=== PATIENT | female | born 1990 | race Hispanic/Latino ===

== ENCOUNTER 2017-01-01 18:01 | Emergency (ER) | payer OTHER ==
[~2017-01-01] VITALS: Ht 167.6 cm; Wt 63.6 kg
[2017-01-01 18:14] VITALS: BP 146/94; PULSE 89; RESP 16; O2SAT 98
[2017-01-01 18:55] LABS: BASOPHILS % (AUTO) 0.3 % (0-3); EOSINOPHILS % (AUTO) 0.3 % (0-5); MONOCYTES % (AUTO) 8.5 % (4-12); NEUTROPHILS % (AUTO) 73.4 % (40-74); Platelet Count 271 bil/L (150-400)
[2017-01-01 18:56] LABS: APPEARANCE,URINE CLOUDY (CLEAR,HAZY); COLOR,URINE DARK YELLOW (YELLOW); OCCULT BLOOD,URINE LARGE (NEGATIVE); UROBILINOGEN,URINE NORMAL (NORMAL)
[2017-01-01] MEDS ORDERED: 0.9% Sodium Chloride 1,000 ML IV ONE (19:05)
[2017-01-01] MEDS ORDERED: Promethazine Inj 25 MG in Dextrose 5%-Pha MIX 50 ML IV ONE (19:20)
[2017-01-01 19:25] LABS: Magnesium 1.8 mg/dL (1.6-2.6)
--- NOTE | 2017-01-01 19:34 | ED.REPORT ---
HPI-Abd Pain F Under 40 Date of Service Jan 01, 2017 ED Provider: Evelyn Abbasi MD Pt is a 26 year old female with a hx of recent tamera presenting to the ED complaining of recurrent nausea and vomiting onset a month ago. She reports that she was seen at [facility] and then was sent to [facility] for 2 weeks for similar symptoms, as well as "tearing her esophagus" (3 or 4 cm). While she was admitted, they did a cholecystectomy and was treated for C.diff, but she has reported that her symptoms have not improved since then. She has been taking Lorazepam and Clonidine, and tried smoking marijuana yesterday and today , all with no relief. Today, a few weeks later, she also reports new onset vaginal bleeding, and that she can't even keep water down. Denies a fever, chills, SOB or wheezing. She reports that she did not have any nausea or vomiting prior to a month ago. 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 diff and esophageal microperforation and had a laparoscopic cholecystectomy. Records from [facility] indicate that the pt was seen there 12/28/2016 and was diagnosed with Cannabinoid hyperemesis syndrome and polysubstance abuse. Nursing Notes Stated Complaint: NAUSEA/VOMITING Chief Complaint: Female Abdominal Pain Nursing Notes Reviewed: Yes Allergies: Coded Allergies: Penicillins (Verified Allergy, Unknown, 01/01/17) General Time Seen by MD: 18:46 Chief Complaint Nausea, Vomiting moderate Hx Obtained From: Patient Arrived By: Walk-in Sudden in Onset?: No Onset Occurred: More than a week ago... (1 month) Symptom Duration: Intermittent Severity: Current: No pain currently Severity: Maximum: No pain Recent Healthcare: Recent doctor visit, Recent hospitalization Similar Sx Previous: Yes Past Medical History Past Medical History denies Past Surgical History Reports: Cholecystectomy Smoking History Never Smoker Social History Alcohol Use: "Social" Drug Use: THC Ambulatory Status Independent Review of Systems Constitutional: Denies: Chills, Fever Respiratory: Denies: Shortness of breath, Wheezing GI: Reports: Nausea, Vomiting Female: Reports: Vaginal bleeding - abnl Complete sys rev & neg: except as marked. Physical Exam Initial Vital Signs Vital Signs (First) Date Time Temp Pulse Resp B/P Pulse Ox O2 Delivery O2 Flow Rate FiO2 01/01/17 18:14 36.7 89 16 146/94 98 Room Air Initial VS: Reviewed Head / Eyes: Atraumatic, Normocephalic, PERRL ENT: Mucous membranes moist, Conjunctiva normal, No scleral icterus Extremities: Vascular intact, Neuro intact, No swelling, No tenderness Skin: Warm, Dry, No cyanosis Neurologic: Alert, Oriented, Nonfocal Psychiatric: Mood/affect normal, Behavior normal, Normal thought content General/Constitutional: Awake, Alert, Well appearing Respiratory / Chest: Breath sounds NL, Breath sounds = bilat, No respiratory distress, No rales, No rhonchi, No wheezing Cardiovascular: Heart rate NL, Regular rhythm, Heart sounds NL, Peripheral circulation NL Abdomen: Atraumatic Upper midline abdominal tenderness. Larascopic incisions clean, dry and intact Back: Atraumatic, Inspection NL Interpretation & Diagnostics Lab Results Interpretation Result Diagram: 01/01/17 1851 01/01/17 1851 Test 01/01/17 18:47 01/01/17 18:51 Urine Color Dark yellow (YELLOW) Urine Appearance Cloudy (CLEAR,HAZY) Urine pH 7.0 (5.0-8.0) Urine Specific [place] 1.015 (1.003-1.035) Urine Protein 30mg/dL (NEG,TRACE) Urine Glucose (UA) Negativemg/dL (NEGATIVE) Urine Ketones 80mg/dL (NEGATIVE) Urine Occult Blood Large (NEGATIVE) Urine Nitrite Negative (NEGATIVE) Urine Bilirubin Negative (NEGATIVE) Urine Urobilinogen Normalmg/dL (NORMAL) Urine Leukocyte Esterase Negative (NEGATIVE) Urine RBC 0-2/hpf (0-2) Urine WBC 0-5/hpf (0-5) Urine Epithelial Cells Moderate/hpf (NONE-MOD) Urine Crystals Amorphous urates (NONE Urine Bacteria None/hpf (NONE-FEW) Urine Hyaline Casts None/lpf (NONE) Urine Granular Casts None seen (NONE SEEN) Urine Waxy Casts None seen (NONE SEEN) Urine Red Blood Cell Casts None seen (NONE SEEN) Urine White Blood Cell Casts None seen (NONE SEEN) Urine Mucus None seen (None Seen) Urine Trichomonas None seen (NONE SEEN) Urine Yeast None (NONE SEEN) Urinalysis Comment None Urine Culture Reflexed Not indicated White Blood Count 9.4th/mm3 (3.8-10.1) Red Blood Count 5.38mil/mm3 (3.90-5.20) Hemoglobin 15.6g/dL (12.0-15.6) Hematocrit 44.1% (35.0-46.0) Mean Corpuscular Volume 82.0fL (81-100) Mean Corpuscular Hemoglobin 29.0pg (27.0-35.0) Mean Corpuscular Hemoglobin Concent 35.4% (32.0-37.0) Red Cell Distribution Width 13.2% (12.3-15.4) Platelet Count 271bil/L (150-400) Neutrophils (%) (Auto) 73.4% (40-74) Lymphocytes (%) (Auto) 17.3% (14-46) Monocytes (%) (Auto) 8.5% (4-12) Eosinophils (%) (Auto) 0.3% (0-5) Basophils (%) (Auto) 0.3% (0-3) Sodium Level 134mEq/L (134-144) Potassium Level 3.3mEq/L (3.5-5.2) Chloride Level 93mEq/L (97-108) Carbon Dioxide Level 23mmol/L (18-29) Blood Urea Nitrogen 12mg/dL (6-20) Creatinine 0.74mg/dL (0.57-1.00) Estimat Glomerular Filtration Rate 136mL/min (>59) Glucose Level 104mg/dL (60-99) Calcium Level 9.3mg/dL (8.5-10.1) Magnesium Level 1.8mg/dL (1.6-2.6) Total Bilirubin 1.5mg/dL (0.0-1.2) Aspartate Amino Transf (AST/SGOT) 23U/L (0-50) Alanine Aminotransferase (ALT/SGPT) 45U/L (0-32) Alkaline Phosphatase 57U/L (25-150) Total Protein 7.5g/dL (6.4-8.4) Albumin 4.4g/dL (3.4-5.0) Lipase 28U/L (13-60) Hold [place] Top Tube Received (Received) CT Abd / Pelvis Interpretation IMPRESSION: 1. No acute disease process. 2. Status post cholecystectomy. 3. No dilated loops of bowel. 4. No free fluid or air. Dictated by: Emeli Andres MD, PhD on 01/01/2017 at 20:53 Study type: Abdominal CT IV contrast Interpretation / Wet Read by: Interpret - Radiologist Re-Eval/Medical Decision Med Decision/Clinical Course Med Decision/Clinical Course: 26-year-old presents to the emergency department upper abdominal pain and nausea and vomiting. She does have some tenderness in the midline epigastrium, given that she has had recent surgery a CT of her abdomen and pelvis was obtained. This did not reveal any acute abnormalities. Records were obtained and patient has had 2 visits in the last week to a different emergency department and was diagnosed with cannabis hyperemesis twice, I really discussed with the patient that I thought this might be the cause for symptoms if we did not find anything else. I suspect that she was on tightly forthcoming about her visits to other emergency departments as the records that we obtained it did not match what she told me about her recent visits to any other hospitals. This increases the likelihood the patient may have a secondary gain. Nonetheless she was treated for her symptoms and had improvement and was discharged from the emergency department with instructions for follow-up with her primary care doctor and information regarding cannabis hyperemesis. Re-Evaluation/Progress #1: Time of Eval: 19:39 Re-Evaluation/Progress Note: NELLA shows that the pt was at [facility] November 24, December 28, and December 30. Re-Evaluation/Progress #2: Time of Eval: 22:17 Re-Evaluation/Progress Note: Discussed with patient all of her results from her evaluation this evening including her CT scan and her laboratory results. I discussed with her my continued concern that her symptoms may be related to marijuana use and that she should stop completely. She pointed out that she is not smoking marijuana right now and she continues to have nausea and vomiting, however I reported to her that her use earlier today could still be causing her symptoms. The patient was dissatisfied with completion of her emergency department evaluation. I listened to her concerns, I discussed with her that the emergency department is not always able to fully diagnose a person's condition, that we are limited in our testing to a specific set of concerns and that eventual diagnoses sometimes must be made by their primary care doctors. I assured her that she is not having any life-threatening emergency at this point. She continued to request further testing in the emergency department, she asked me to test her for ulcers. I reported to her that this is a test was done in clinic as an outpatient. She reported to me that I could order breath test. I again reiterated that these tests must be done with her primary care doctor. She became quite angry and reported that I was "judging" her for her cannabis use. I told her that I do not actually know if her symptoms are caused by cannabis as there is not test for this but if I were her would stop using completely to see if that made her symptoms go away. She requested that I give her additional IV fluids and I answered that I would not as I did not feel that it was clinically indicated at this time. Counseled Regarding: Diagnosis, Lab results, Need for follow-up, When/why to return to ED Discharge & Departure Primary Impression: Cannabinoid hyperemesis syndrome Additional Impressions: Vomiting Vomiting type: unspecified Vomiting Intractability: unspecified Nausea presence: unspecified Qualified Code: R11.10 - Vomiting, unspecified Abdominal pain Abdominal location: generalized Qualified Code: R10.84 - Generalized abdominal pain Disposition: Home Discharge Condition All VS Reviewed: Yes Condition: Improved Additional Instructions: Your labs and CT scan of your abdomen today were reassuring. We did not find an exact cause for your abdominal symptoms today. You may need outpatient testing with a primary care physician. It appears from your previous records that it is suspected that you may have a reaction to marijuana that causes abdominal pain and vomiting. You should stop using marijuana. Some people find that taking warm showers, or an over-the- counter medication known as capsaicin rubbed on their stomach helps their symptoms. Return to the emergency department if you develop severe pain, high fevers, inability to eat or drink. Referrals: Rasta Neal MD Attestation Portions of this note were transcribed by Eden More. I, Dr. Abbasi personally performed the history, physical exam and medical decision-making; I reviewed and confirmed the accuracy of the information in the transcribed note. Signed by: Angela Campos, 01/01/2017. copies to: Rasta Neal MD, Sarah C MD Jan 01, 2017 19:34 EDEN MORE Jan 01, 2017 19:40
[2017-01-01] MEDS ORDERED: Ketorolac 15 mg/mL Inj IVPUSH ONE (19:55)
[2017-01-01] MEDS ORDERED: Ondansetron 2 mg/mL 2 mL Inj ONE (20:26)
--- NOTE | 2017-01-01 20:57 | DRSVH ---
PROCEDURE: CT ABDOMEN AND PELVIS WITH CONTRAST ([id number]) INDICATIONS: recent cholecystectomy, epigastr pain and vomiting TECHNIQUE: After the administration of intravenous contrast, 5 mm thick sections acquired from the diaphragm to the symphysis. 5 mm coronal and sagittal reformats were acquired. For radiation dose reduction, the following was used: automated exposure control, adjustment of mA and/or kV according to patient siz e. COMPARISON: None. FINDINGS: Image quality: Excellent. ABDOMEN: Lung bases: Lung bases are clear. Heart size is normal. Solid organs: Liver and spleen are normal in size and enhancement. Focal fatty infiltration in the l iver adjacent to the falciform ligament. Gallbladder is surgically absent. Biliary system is non di lated. Pancreas enhances normally. No adrenal nodules. Kidneys demonstrate normal size and enhance ment, without hydronephrosis. Peritoneum and bowel: Bowel loops demonstrate normal wall thickness and caliber. No free fluid or a ir. The appendix is normal. Nodes and vessels: No retroperitoneal or mesenteric adenopathy by size criteria. Aorta and inferior vena cava are normal in size. Miscellaneous: No ventral hernias. PELVIS: Genitourinary: Bladder wall thickness is normal. Uterus and adnexa are within normal limits. Miscellaneous: No inguinal hernias or adenopathy. Bones: No suspicious bony lesions. No vertebral body compression fractures. IMPRESSION: 1. No acute disease process. 2. Status post cholecystectomy. 3. No dilated loops of bowel. 4. No free fluid or air. Dictated by: Emeli Andres MD, PhD on 01/01/2017 at 20:53 Approved by: Emeli Andres MD, PhD on 01/01/2017 at 20:56
[2017-01-01 22:49] VITALS: BP 130/83; PULSE 72; RESP 16; O2SAT 96
== END 2017-01-01 22:47 | disposition home or self-care (01) ==
LOC: SED 18:01
DX: F12.229 Cannabis dependence with intoxication, unspecified (principal); R10.84 Generalized abdominal pain; Z88.0 Allergy status to penicillin
CPT/HCPCS: 36415; 74177; 80053; 81000; 81025; 83690; 83735; 85025; 96361; 96374; 96375; 99285; J1885; J2405; J2550; J7030; Q9967